=== PATIENT | female | born 1990 | race Caucasian/White ===

== ENCOUNTER 2017-02-27 05:59 | Inpatient (IN) ==
[2017-02-27] MEDS ORDERED: ONDANSETRON 4 MG/2 ML VIAL IV PRN (06:12)
[2017-02-27] MEDS ORDERED: BUTORPHANOL 2 MG/ML VIAL IV PRN (06:12)
[2017-02-27] MEDS ORDERED: MEPERIDINE 50 MG/1 ML VIAL IM PRN (06:12)
[2017-02-27 06:39] LABS: Basophils % 0.3 % (0.0-0.8); Eosinophils # 0.1 10*3/uL (0.0-0.87); Eosinophils % 0.9 % (0.00-10.9); Hemoglobin 10.2 GM/DL (12.0-16.0); Immature Granulocytes % 3.3 %; Immature Granulocytes Absolute 0.29 #; Lymphocytes # 1.5 10*3/uL (1.4-4.0); Lymphocytes % 17.8 % (21.3-54.2); Mean Corpuscular Hemoglobin 31 PG (27-34); Mean Corpuscular Volume 90.6 FL (87-102); Monocytes # 0.4 10*3/uL (0.11-0.8); Monocytes % 4.5 % (1.7-12.7); Neutrophils # 6.3 10*3/uL (1.4-7.4); Neutrophils % 73.2 % (38.7-73.9); Platelet Count 226 T/CUMM (130-400); Red Blood Count 3.31 MC/CUMM (3.8-5.5); Red Cell Distribution Width 14.9 % (9.3-17.3); White Blood Count 8.7 T/CUMM (4-12)
[2017-02-27] MEDS: LACTATED RINGERS 1,000 ML IV SCH (06:41)
[2017-02-27 07:07] LABS: Albumin 2.4 G/DL (3.4-5.0); Bilirubin,Total 0.4 MG/DL (0.2-1.0); Calcium 8.7 MG/DL (8.5-10.1); Potassium 3.5 MMOL/L (3.5-5.1); Total Protein 6.5 G/DL (6.4-8.3)
[2017-02-27] MEDS: OXYTOCIN/LR 20 UNIT/1,000 ML BAG IV SCH ×2 (07:26→18:35)
[2017-02-27] MEDS ORDERED: FAMOTIDINE 20 MG/2 ML VIAL IV ONE (07:44)
[2017-02-27] MEDS ORDERED: CITRIC ACID/SODIUM CITRATE 30 ML UDCUP PO ONE (07:44)
[2017-02-27] MEDS ORDERED: diphenhydrAMINE 50 MG/1 ML VIAL IV PRN ×2 (07:44)
[2017-02-27] MEDS ORDERED: ONDANSETRON 4 MG/2 ML VIAL IV ONE (07:44)
[2017-02-27] MEDS ORDERED: ePHEDrine 50 MG/ML AMP IV PRN (07:44)
[2017-02-27] MEDS ORDERED: hydrOXYzine HCL 25 MG/1 ML VIAL IM PRN (07:44)
[2017-02-27] MEDS ORDERED: PROMETHAZINE 25 MG/1 ML VIAL IM ONE (07:44)
[2017-02-27] MEDS ORDERED: LACTATED RINGERS 1,000 ML IV ONE (07:44)
[2017-02-27] MEDS: fentaNYL 2 MCG/ROPIV 0.2% EPID 150 ML EPIDURAL SCH (10:54)
[2017-02-27] MEDS ORDERED: LIDOCAINE 1% 50 ML VIAL ONE (11:43)
[2017-02-27] MEDS ORDERED: miSOPROStol 200 MCG TABLET ONE (11:43)
[2017-02-27 11:47] LABS: Apearance,Urine CLEAR (Clear); Bilirubin,Urine Negative (Negative); Blood, Urine Negative (Negative); Glucose,Urine (UA) Negative (Negative); Ketones,Urine Negative (Negative); Nitrite,Urine Negative (Negative); Protein,Urine Negative; RBC,Urine 1 /HPF (0-4); Urine Color Straw (Yellow); Urine Specific Gravity 1.003 (1.001-1.035); Urine Urobilinogen < 2.0 EU/DL (0.2-1.0)
[2017-02-27] MEDS ORDERED: IBUPROFEN 800 MG TABLET PO PRN (17:02)
[2017-02-27] MEDS: DOCUSATE SODIUM 100 MG CAPSULE PO SCH (20:35)
[2017-02-28 05:47] LABS: Basophils # 0.1 10*3/uL (0.0-0.2); Basophils % 0.5 % (0.0-0.8); Eosinophils # 0.2 10*3/uL (0.0-0.87); Eosinophils % 1.7 % (0.00-10.9); Hematocrit 30.4 VOL% (35.7-47.0); Immature Granulocytes % 1.8 %; Immature Granulocytes Absolute 0.19 #; Lymphocytes # 1.8 10*3/uL (1.4-4.0); Lymphocytes % 17.5 % (21.3-54.2); Mean Corpuscular HGB Conc 32.9 GM/DL (32-36); Mean Corpuscular Hemoglobin 31 PG (27-34); Mean Corpuscular Volume 92.7 FL (87-102); Mean Platelet Volume 10.2 FL (9.6-12.0); Monocytes # 0.7 10*3/uL (0.11-0.8); Monocytes % 7.1 % (1.7-12.7); Neutrophils # 7.4 10*3/uL (1.4-7.4); Neutrophils % 71.4 % (38.7-73.9); Platelet Count 194 T/CUMM (130-400); Red Blood Count 3.28 MC/CUMM (3.8-5.5); White Blood Count 10.3 T/CUMM (4-12)
[2017-02-28] MEDS: DOCUSATE SODIUM 100 MG CAPSULE PO SCH ×2 (09:52→20:21)
[2017-03-01] MEDS: LACTATED RINGERS 1,000 ML IV SCH ×3 (00:45→00:46)
[2017-03-01] MEDS: fentaNYL 2 MCG/ROPIV 0.2% EPID 150 ML EPIDURAL SCH (00:47)
[2017-03-01] MEDS: OXYTOCIN/LR 20 UNIT/1,000 ML BAG IV SCH (00:47)
[2017-03-01 07:26] VITALS: BP 124/73
[2017-03-01] MEDS: DOCUSATE SODIUM 100 MG CAPSULE PO SCH (09:24)
== END 2017-03-01 13:45 | disposition home or self-care (01) | DRG 560 ==
LOC: N.LDOUT 05:59 → N.LD 06:03 → N.OB 14:09
PROVIDERS: ADMIT Obstetrics & Gynecology; ATTEND Obstetrics & Gynecology